=== PATIENT | female | born 1940 | race Caucasian/White ===

== ENCOUNTER 2017-07-11 11:24 | Emergency (ER) | payer OTHER, MEDICARE ==
[~2017-07-11] VITALS: Ht 162.6 cm; Wt 83.9 kg
[2017-07-11 11:31] VITALS: BP_SYST 149
[2017-07-11] MEDS ORDERED: NACL 0.9% 1,000 ML IV ONE (11:43)
[2017-07-11 12:29] LABS: HEMATOCRIT 30.6 % (36-48); HEMOGLOBIN 10.2 g/dL (12.0-16.0); MEAN CORPUSCULAR HEMOGLOBIN 27 pg (27-31); MEAN CORPUSCULAR HGB CONC 33 % (32-36); MEAN CORPUSCULAR VOLUME 81 fL (79.0-98.0); PLATELET COUNT (AUTO) 116 K/uL (130-430); RED BLOOD CELL COUNT(AUTO) 3.77 MIL/uL (4.2-6.2); RED CELL DISTRIBUTION WIDTH 14.4 % (9.0-15.0)
[2017-07-11 12:39] LABS: ANION GAP 13 (5-15); CALCIUM 9.6 mg/dL (8.4-11.0); CHLORIDE 102 mmol/L (98-107); CREATININE 1.44 mg/dL (0.55-1.30); GLUCOSE 119 mg/dL (70-99); POTASSIUM 4.3 mmol/L (3.5-5.1); SODIUM SERUM 137 mmol/L (136-145); UREA NITROGEN, BLOOD 29 mg/dL (8-21)
[2017-07-11 12:42] LABS: PROTHROMBIN TIME 10.9 SECS (9.5-12.5)
[2017-07-11 12:44] LABS: ALANINE AMINOTRANSFERASE 14 U/L (12-78); ALBUMIN 3.6 g/dL (3.4-4.8); ASPARTATE AMINOTRANSFERASE 15 U/L (10-37); LIPASE 274 U/L (73-393); TOTAL BILIRUBIN 0.5 mg/dL (0.0-1.0)
[2017-07-11] MEDS ORDERED: SIMV20TA2 PO (12:48)
[2017-07-11] MEDS ORDERED: HYDR25TA4 PO (12:48)
[2017-07-11] MEDS ORDERED: ATEN-41 PO (12:48)
[2017-07-11] MEDS ORDERED: NOR10 PO (12:48)
[2017-07-11] MEDS ORDERED: QUIN40TA PO (12:48)
[2017-07-11] MEDS ORDERED: GLU500 PO (12:48)
[2017-07-11 12:51] LABS: BASOPHILS % (MANUAL) 0 % (0-2); EOSINOPHILS % (MANUAL) 0 % (0-7); LYMPHOCYTES % (MANUAL) 38 % (20-46); MONOCYTES % (MANUAL) 15 % (0-11)
[2017-07-11 12:58] VITALS: BP_SYST 146
== END 2017-07-11 12:58 | disposition home or self-care (01) ==
LOC: SED 11:24
DX: E86.0 Dehydration (principal); R31.9 Hematuria, unspecified; Z85.51 Personal history of malignant neoplasm of bladder
CPT/HCPCS: 36415; 71010; 80053; 83690; 85007; 85027; 85610; 85730; 99285; J7030